=== PATIENT | female | born 1970 ===

== ENCOUNTER 2017-11-09 10:34 | Outpatient (CLI) | payer OTHER ==
--- NOTE | 2017-11-12 13:01 | Ultrasound Report ---
BILATERAL DIGITAL DIAGNOSTIC MAMMOGRAM with CAD and RIGHT BREAST ULTRASOUND: 11/09/17 CLINICAL: Right palpable lump and pain. COMPARISON:02/22/15 bilateral mammogram and bilateral breast ultrasound FINDINGS: The breasts are heterogeneously dense, which may obscure small masses and limit the sensitivity of mammography. Circumscribed densities in the right breast are larger compared to the prior exam.No architectural distortion or suspicious calcifications. Ultrasound of the right breast (including all four quadrants and the retroareolar area) demonstrated multiple benign cysts and no solid mass. The largest cyst is at 12 o'clock 3 cm from the nipple and measures 6.4 x 3.5 x 5.0 cm compared to 6.7 x 1.3 x 5.4 cm on the last exam. It correlates with the painful palpable lump. Benign cyst at 10 o'clock 7 cm from the nipple measuring 2.6 x 2.7 x 1.8 cm and a benign cyst at 10 o'clock 4 cm from the nipple measuring 4.8 x 3.3 x 5.6 cm. IMPRESSION: Benign cysts of the right breast with the dominant symptomatic 6.4 cm cyst at 12 o'clock. Negative left breast. BI-RADS CATEGORY: 2 -- Benign RECOMMENDATION: Consider ultrasound guided right cyst aspiration for symptomatically. Recommend routine mammographic screening in one year. COMMENT: Patient follow-up letters are generated by our [employer] application.
== END 2017-11-09 10:35 | disposition home or self-care (01) ==
LOC: SPVWC 10:34
PROVIDERS: ATTEND Family Medicine
DX: N60.01 Solitary cyst of right breast (principal)
CPT/HCPCS: 77066